=== PATIENT | female | born 1965 | race American Indian/Alaskan Native ===

== ENCOUNTER 2017-06-23 23:48 | Emergency (ER) | payer OTHER ==
[2017-06-24] MEDS ORDERED: NORCO 5/325 ONE (01:02)
[2017-06-24] MEDS ORDERED: NORCO 5/325 PO ONE (01:05)
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
[2017-06-24] MEDS ORDERED: CATAPRES ONE (02:54)
[2017-06-24] MEDS ORDERED: CATAPRES PO ONE (02:58)
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
[2017-06-24 04:12] VITALS: BP 157/77
== END 2017-06-24 04:25 | disposition home or self-care (01) ==
LOC: ED 23:48
DX: S09.90XA Unspecified injury of head, initial encounter (principal); R07.89 Other chest pain; I10 Essential (primary) hypertension; F17.200 Nicotine dependence, unspecified, uncomplicated; Z88.6 Allergy status to analgesic agent; Z79.82 Long term (current) use of aspirin; Y04.8XXA Assault by other bodily force, initial encounter; Y93.89 Activity, other specified; Y92.89 Other specified places as the place of occurrence of the external cause; Y99.8 Other external cause status
CPT/HCPCS: 70470; 72125; 99284